=== PATIENT | male | born 1960 | race Caucasian/White ===

== ENCOUNTER 2016-10-18 01:04 | Emergency (ER) | payer OTHER, MEDICARE ==
[~2016-10-18] VITALS: Ht 180.3 cm; Wt 54.4 kg
[~2016-10-18 01:04] MED LIST: BACLOFEN20 M1 PO; BACTRIM DS TAB1 EACH PO; DIAZEPAM10 M1 PO; PYRIDIUM200 M1 PO
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
[2016-10-18] MEDS ORDERED: PYRIDIUM200 M1 PO (02:34)
[2016-10-18] MEDS ORDERED: MACROBID 100 M100 MG PO (02:34)
[2016-10-18 03:05] VITALS: BP 90/56
== END 2016-10-18 03:07 ==
LOC: ERH 01:04
DX: N39.0 Urinary tract infection, site not specified (principal)
CPT/HCPCS: 81001; 87086; 87147

== ENCOUNTER 2016-12-01 01:29 | Emergency (ER) | payer OTHER, MEDICARE ==
[~2016-12-01] VITALS: Ht 182.9 cm; Wt 59.0 kg
[~2016-12-01 01:29] MED LIST changes: +MACROBID 100 M100 MG PO
--- NOTE | 2016-12-01 01:30 | ED GI/GU/ABDOMINAL COMPLAINT ---
History of Present Illness General Chief Complaint: Male Genitourinary Problems Stated Complaint: BIBA BLADDER INFECTION Source: patient, EMS Exam Limitations: no limitations Vital Signs & Intake/Output Vital Signs & Intake/Output Vital Signs Date Time Temp Pulse Resp B/P Pulse O2 O2 Flow FiO2 Ox Delivery Rate 12/01 0137 97 Room Air 12/01 133 96.1 62 18 183/110 97 Room Air Allergies Coded Allergies: NO KNOWN ALLERGIES (09/04/16) Reconcile Medications Baclofen 20 MG TABLET 1 TAB PO 4XDAILY MUSCLE SPASMS (Reported) Ciprofloxacin HCl (Cipro) 500 MG TABLET 1 TAB PO BID uti Diazepam 10 MG TABLET 1 TAB PO TID MUSCLE RELAXER/ANXIETY (Reported) Triage Nurses Notes Reviewed? yes Onset: Gradual Duration: day(s): Timing: recent history Quality/Severity: burning, cramping Location: suprapubic Radiation: no radiation Modifying Factors: Worsens With: palpation, urinating. 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 He notes suprapubic burning and cramping for the past day. He notes that he needs to straight cath himself, "I think that's how I get the infections." He is otherwise well. Past History Travel History Traveled to [place] past 21 day No Medical History Any Pertinent Medical History? see below for history Neurological: paraplegic EENT: NONE Cardiovascular: NONE Respiratory: NONE Gastrointestinal: constipation Hepatic: NONE Renal: NONE Musculoskeletal: NONE Psychiatric: NONE Endocrine: NONE Blood Disorders: NONE History of CDIFF: No Surgical History Surgical History: non-contributory Psychosocial History Who do you live with Patient/Self What is your primary language [place] Family History Hx Contributory? No Review of Systems Review of Systems Constitutional: Reports: no symptoms. EENTM: Reports: no symptoms. Respiratory: Reports: no symptoms. Cardiovascular: Reports: no symptoms. GI: Reports: no symptoms. Genitourinary: Reports: no symptoms. Musculoskeletal: Reports: no symptoms. Skin: Reports: no symptoms. Neurological/Psychological: Reports: no symptoms. Hematologic/Endocrine: Reports: no symptoms. Immunologic/Allergic: Reports: no symptoms. All Other Systems: Reviewed and Negative Physical Exam Physical Exam General Appearance: well developed/nourished, mild distress Head: atraumatic, normal appearance Eyes: Bilateral: normal appearance. Ears, Nose, Throat, Mouth: hearing grossly normal Neck: normal inspection, supple Respiratory: normal breath sounds, chest non-tender, no respiratory distress, quiet respiration, lungs clear Cardiovascular: regular rate/rhythm Gastrointestinal: normal bowel sounds, soft, mild suprapubic tenderness to palpation. no rebound. no guarding. Male Genitals: no significant scrotal edema. Back: normal inspection Extremities: lower extremity contractures. upper extremity wasting. Neurologic/Psych: awake, alert, oriented x 3, lower extremity paralysis, upper extremity pareisis bilaterally Skin: intact, normal color, warm/dry Core Measures ACS in differential dx? No Severe Sepsis Present: No Septic Shock Present: No Progress Differential Diagnosis: uti vs retension vs other. Plan of Care: Orders Procedure Date/time Status Straight Cath 12/01 132 Active CULTURE,URINE 12/01 132 Active URINALYSIS 12/01 132 Complete Laboratory Tests 12/01/163: Urinalysis HEAVY H, Urine Color YEL, Urine Clarity CLDY H, Urine pH 6.5, Ur Specific [place] 1.010, Urine Protein NEG, Urine Ketones NEG, Urine Nitrite NEG, Urine Bilirubin NEG, Urine Urobilinogen 0.2, Ur Leukocyte Esterase LARGE H, Ur Microscopic SEDIMENT EXAMINED, Urine RBC 10-15 H, Urine WBC 25-50 H, Ur Epithelial Cells RARE, Urine Bacteria MANY H, Urine Mucus FEW, Urine Hemoglobin SMALL H, Urine Glucose NEG Microbiology 12/01 222 URINE ROUT: Urine Culture - RECD Initial ED EKG: none Departure Departure Disposition: HOME OR SELF CARE Condition: Stable Clinical Impression Primary Impression: UTI (urinary tract infection) Referrals: IDALMIS ABBOTT,PATRICK Whalen (PCP/Family) Departure Forms: Customer Survey General Discharge Information Prescriptions: Current Visit Scripts Ciprofloxacin HCl (Cipro) 1 TAB PO BID #28 TAB
[2016-12-01] MEDS ORDERED: CIPRO500 M1 PO (02:56)
[2016-12-01 03:59] VITALS: BP 104/62
== END 2016-12-01 04:14 ==
LOC: ERH 01:29
DX: N39.0 Urinary tract infection, site not specified (principal)
CPT/HCPCS: 81001; 87086

== ENCOUNTER 2017-02-08 05:27 | Emergency (ER) | payer OTHER, MEDICARE ==
[~2017-02-08] VITALS: Ht 182.9 cm; Wt 61.2 kg
[~2017-02-08 05:27] MED LIST changes: +CIPRO500 M1 PO
--- NOTE | 2017-02-08 05:36 | ED GI/GU/ABDOMINAL COMPLAINT ---
History of Present Illness General Chief Complaint: General Adult Stated Complaint: "PER EMS BOWEL BLOCKAGE" Source: patient Exam Limitations: no limitations Vital Signs & Intake/Output Vital Signs & Intake/Output Vital Signs Date Time Temp Pulse Resp B/P B/P Pulse O2 O2 Flow FiO2 Mean Ox Delivery Rate 02/08 0545 97 Room Air 02/08 0537 96.6 71 18 106/72 97 Room Air Allergies Coded Allergies: NO KNOWN ALLERGIES (09/04/16) Reconcile Medications Baclofen 20 MG TABLET 1 TAB PO 4XDAILY MUSCLE SPASMS (Reported) Ciprofloxacin HCl (Cipro) 500 MG TABLET 1 TAB PO BID uti, proctitis Diazepam 10 MG TABLET 1 TAB PO TID MUSCLE RELAXER/ANXIETY (Reported) Polyethylene Glycol 3350 (Miralax) 17 GRAM/DOSE POWDER 17 GM PO DAILY constipation mix with water, juice, soda, coffee or tea Triage Note: TRIAGE: PATIENT TO ER FROM HOME REPORTING LAST BM APPROX 1 WEEK AGO, BASELINE 2 BM PER WEEK. PATIENT HX PARAPALEGIA W/ PARALYSIS TO HANDS. PATIENT REPORTS ALSO THINKS POSSIBLE BLADDER INFECTION, STRAIGHT CATHS SELF AT BASELINE AND NOTED "URINE WAS CLOUDY AND HAZY LOOKING." REPORTS "STRAIGHT CATH SELF WHEN I CAN'T GO." PATIENT MANUALLY DISIMPACTED BY MD LAMB IN TRIAGE. LARGE AMOUNT FORMED STOOL OUTPUT, REPORTS +PAIN RELIEF TO LOWER ABDOMEN. GUIAC NEGATIVE. Triage Nurses Notes Reviewed? yes Onset: Gradual Duration: day(s):, waxing and waning Timing: recent history Quality/Severity: cramping Location: left lower quadrant, suprapubic Radiation: no radiation Activities at Onset: none Prior Abdominal Problems: similar symptoms Modifying Factors: Worsens With: defecating, urinating. Associated Symptoms: abdominal pain HPI: 56 yo gentleman with lower extremity paralysis, h/o uti, h/o constipation, presents with left lower quadrant abdominal discomfort and fullness as well as a change in his urination. He notes his last bowel movement was 1 week ago. Usually he has 2 bowel movements per week. He notes also that he feels suprapubic pressure in his lower abdomen and a darker change in his urine color. He notes, "I can't feel down there so well, but when it's like that it's because I have a urine infection." He notes no fever, chills, nausea, vomiting, shortness of breath, chest pain. Past History Travel History Traveled to [place] past 21 day No Medical History Any Pertinent Medical History? 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 No Review of Systems Review of Systems Constitutional: Reports: no symptoms. EENTM: Reports: no symptoms. Respiratory: Reports: no symptoms. Cardiovascular: Reports: no symptoms. GI: Reports: no symptoms. Genitourinary: Reports: no symptoms. Musculoskeletal: Reports: no symptoms. Skin: Reports: no symptoms. Neurological/Psychological: Reports: no symptoms. Hematologic/Endocrine: Reports: no symptoms. Immunologic/Allergic: Reports: no symptoms. All Other Systems: Reviewed and Negative Physical Exam Physical Exam General Appearance: well developed/nourished, mild distress Head: atraumatic, normal appearance Eyes: Bilateral: normal appearance. Ears, Nose, Throat, Mouth: hearing grossly normal Neck: normal inspection, supple, full range of motion, normal alignment Respiratory: normal breath sounds, chest non-tender, no respiratory distress, quiet respiration Cardiovascular: regular rate/rhythm Gastrointestinal: normal bowel sounds, soft, left lower quadrant fullness, mildly tender to palpation Rectal: large amount of firm brown stool, guiac negative. Back: normal inspection Extremities: normal range of motion Neurologic/Psych: no motor/sensory deficits, awake, alert, oriented x 3 Skin: intact, normal color, warm/dry Core Measures ACS in differential dx? No Severe Sepsis Present: No Septic Shock Present: No Progress Differential Diagnosis: UTI/pyelo, constipation vs other. Plan of Care: Orders Procedure Date/time Status Straight Cath 02/09 536 Active URINALYSIS 02/09 536 Complete LIPASE 02/09 536 Complete COMPREHENSIVE METABOLIC PANEL 02/09 536 Complete CBC WITHOUT DIFFERENTIAL 02/09 536 Complete AMYLASE 02/09 536 Complete Laboratory Tests 02/08/17 0545: Anion Gap 8, Estimated GFR > 60, BUN/Creatinine Ratio 32.0 H, Glucose 75, Calcium 8.8, Total Bilirubin 0.4, AST 23, ALT 33, Alkaline Phosphatase 54, Total Protein 6.7, Albumin 4.0, Globulin 2.7, Albumin/Globulin Ratio 1.5, Amylase 73, Lipase 27, CBC w Diff NO MAN DIFF REQ, RBC 3.94 L, MCV 93.7, MCH 31.4 H, RDW 14.4, MPV 8.1, Gran % 50.1, Lymphocytes % 39.6, Monocytes % 6.7, Eosinophils % 3.2, Basophils % 0.4, Absolute Granulocytes 5.0, Absolute Lymphocytes 4.0 H, Absolute Monocytes 0.7 H, Absolute Eosinophils 0.3, Absolute Basophils 0, PUBS MCHC 33.5 02/08/17 0542: Urinalysis MOD H, Urine Color STRAW, Urine Clarity HAZY H, Urine pH 6.5, Ur Specific [place] 1.010, Urine Protein NEG, Urine Ketones NEG, Urine Nitrite POS H, Urine Bilirubin NEG, Urine Urobilinogen 0.2, Ur Leukocyte Esterase LARGE H, Ur Microscopic SEDIMENT EXAMINED, Urine RBC 1-3, Urine WBC 50-75 H, Ur Epithelial Cells FEW, Urine Bacteria MOD H, Urine Hemoglobin SMALL H, Urine Glucose NEG Diagnostic Imaging: Viewed by Me: CT Scan. Discussed w/RAD: CT Scan. Radiology Impression: abd/pelvic ct... proctitis... full report below. Initial ED EKG: none Comments: PATIENT: IVDA VELA PRESENT AGE: 56 PATIENT ACCOUNT NO: [id number] : 61 LOCATION: [facility] ORDERING PHYSICIAN: GLENN LAMB MD SERVICE DATE: 02/08/17 EXAM TYPE: CAT - CT ABD & PELVIS W/O IV CONTRAS EXAMINATION: CT ABDOMEN AND PELVIS WITHOUT CONTRAST CLINICAL INFORMATION: Left lower abdominal pain COMPARISON: None TECHNIQUE: Multidetector volumetric imaging was performed from the superior aspect of the liver through the pubic symphysis. Sagittal and coronal reformatted images were obtained on the technologist's workstation. DLP: 264 mGy-cm FINDINGS: LUNG BASES: The visualized lung bases are unremarkable. LIVER, GALLBLADDER, AND BILIARY TREE: The liver is normal in size, shape, and attenuation. No focal hepatic lesion or biliary ductal dilatation is present. The gallbladder is unremarkable with no evidence of radiopaque gallstones, gallbladder wall thickening, or obvious pericholecystic inflammatory changes. PANCREAS: Unremarkable. SPLEEN: Unremarkable. ADRENAL GLANDS: Unremarkable. KIDNEYS AND URETERS: The kidneys are normal in size, shape, and attenuation. No hydronephrosis, hydroureter, or calculi seen. No perinephric stranding. BLADDER: The bladder is normally distended with mild circumferential wall thickening. No adjacent inflammation. GASTROINTESTINAL TRACT: The stomach and small bowel are unremarkable. No dilated loops of bowel or obstruction. Mild colonic stool burden. There is wall thickening of the rectum with adjacent inflammation. ABDOMINAL WALL: No significant hernia is appreciated. LYMPH NODES: Normal. VASCULAR: Moderate atherosclerotic calcifications. PELVIC VISCERA: The prostate and seminal vesicles are unremarkable. OSSEOUS STRUCTURES: No acute or suspicious osseous abnormality. Mild degenerative changes of the hips and spine. IMPRESSION: Rectal wall thickening and adjacent inflammation suggestive of proctitis. While there is stool in the rectum, it is not significantly distended to suggest stercoral colitis. DICTATED BY: DWAINE HERNANDEZ MD DATE/TIME DICTATED:02/08/17610 COMPUTER ART INSTRUCTOR:YOMI DATE/TIME TRANSCRIBED:02/08/17610 CONFIDENTIAL, DO NOT COPY WITHOUT APPROPRIATE AUTHORIZATION. <Electronically signed in Other Vendor System> SIGNED BY: DWAINE HERNANDEZ MD 02/08 Departure Departure Disposition: HOME OR SELF CARE Condition: Stable Clinical Impression Primary Impression: Constipation Referrals: IDALMIS ABBOTT,PATRICK Whalen (PCP/Family) Departure Forms: Customer Survey General Discharge Information Prescriptions: Current Visit Scripts Polyethylene Glycol 3350 (Miralax) 17 GM PO DAILY #255 GM Ref 1 mix with water, juice, soda, coffee or tea Ciprofloxacin HCl (Cipro) 1 TAB PO BID #28 TAB Comments 02/08/17, 5:36... disimpacted a large amount of hard brown stool. pt felt relief. guiac negative. 02/08/17, 6:48.... discussed at length... pt feeling better... pt home with cipro , has support at home... advised close follow up.
[2017-02-08 05:37] VITALS: BP 106/72
[2017-02-08 06:03] LABS: ABSOLUTE BASOPHIL COUNT 0 /CUMM (0.0-0.2); ABSOLUTE EOSINOPHIL COUNT 0.3 /CUMM (0.0-0.7); ABSOLUTE MONOCYTE COUNT 0.7 /CUMM (0.10-0.60); BASOPHIL % 0.4 % (0.0-2.0); EOSINOPHIL % 3.2 % (0-5); GRANULOCYTE % 50.1 % (42.2-75.2); HEMATOCRIT 36.9 % (42-52); MEAN CORPUSCULAR HGB 31.4 PG (27.0-31.0); MEAN CORPUSCULAR HGB CONC 33.5 G/DL (33.0-37.0); MEAN CORPUSCULAR VOLUME 93.7 FL (80.0-94.0); MEAN PLATELET VOLUME 8.1 FL (7.4-10.4); PLATELET COUNT 232 /CUMM (130-400); RBC DISTRIBUTION WIDTH 14.4 % (11.5-14.5); RED BLOOD CELL CT 3.94 /CUMM (4.70-6.10)
--- NOTE | 2017-02-08 06:17 | CT SCAN REPORT ---
EXAMINATION: CT ABDOMEN AND PELVIS WITHOUT CONTRAST CLINICAL INFORMATION: Left lower abdominal pain COMPARISON: None TECHNIQUE: Multidetector volumetric imaging was performed from the superior aspect of the liver through the pubic symphysis. Sagittal and coronal reformatted images were obtained on the technologist's workstation. DLP: 264 mGy-cm FINDINGS: LUNG BASES: The visualized lung bases are unremarkable. LIVER, GALLBLADDER, AND BILIARY TREE: The liver is normal in size, shape, and attenuation. No focal hepatic lesion or biliary ductal dilatation is present. The gallbladder is unremarkable with no evidence of radiopaque gallstones, gallbladder wall thickening, or obvious pericholecystic inflammatory changes. PANCREAS: Unremarkable. SPLEEN: Unremarkable. ADRENAL GLANDS: Unremarkable. KIDNEYS AND URETERS: The kidneys are normal in size, shape, and attenuation. No hydronephrosis, hydroureter, or calculi seen. No perinephric stranding. BLADDER: The bladder is normally distended with mild circumferential wall thickening. No adjacent inflammation. GASTROINTESTINAL TRACT: The stomach and small bowel are unremarkable. No dilated loops of bowel or obstruction. Mild colonic stool burden. There is wall thickening of the rectum with adjacent inflammation. ABDOMINAL WALL: No significant hernia is appreciated. LYMPH NODES: Normal. VASCULAR: Moderate atherosclerotic calcifications. PELVIC VISCERA: The prostate and seminal vesicles are unremarkable. OSSEOUS STRUCTURES: No acute or suspicious osseous abnormality. Mild degenerative changes of the hips and spine. IMPRESSION: Rectal wall thickening and adjacent inflammation suggestive of proctitis. While there is stool in the rectum, it is not significantly distended to suggest stercoral colitis.
[2017-02-08] MEDS ORDERED: CIPRO500 M1 PO ×2 (06:38→06:41)
[2017-02-08] MEDS ORDERED: MIRALAX119 GM PO (06:38)
== END 2017-02-08 07:53 ==
LOC: ERH 05:27
PROVIDERS: Pediatrics
DX: K59.00 Constipation, unspecified (principal)
CPT/HCPCS: 74176; 81001

== ENCOUNTER 2017-03-16 21:44 | Emergency (ER) | payer OTHER, MEDICARE ==
[~2017-03-16] VITALS: Ht 167.6 cm; Wt 43.1 kg
[~2017-03-16 21:44] MED LIST changes: +MIRALAX119 GM PO
--- NOTE | 2017-03-16 22:07 | ED GI/GU/ABDOMINAL COMPLAINT ---
History of Present Illness General Chief Complaint: Male Genitourinary Problems Stated Complaint: BIBA FOR BLADDER INFECTION Source: patient Exam Limitations: no limitations Vital Signs & Intake/Output Vital Signs & Intake/Output Vital Signs Date Time Temp Pulse Resp B/P B/P Pulse O2 O2 Flow FiO2 Mean Ox Delivery Rate 03/166 97.1 78 20 86/54 97 Room Air ED Intake and Output 03/17 0000 03/16 1200 Intake Total 240 Output Total Balance 240 Intake, Oral 240 Patient 94 lb 15.99 oz Weight Weight Estimated Measurement Method Allergies Coded Allergies: NO KNOWN ALLERGIES (09/04/16) Reconcile Medications Baclofen 20 MG TABLET 1 TAB PO 4XDAILY MUSCLE SPASMS (Reported) Ciprofloxacin HCl (Cipro) 500 MG TABLET 1 TAB PO BID uti, proctitis Diazepam 10 MG TABLET 1 TAB PO TID MUSCLE RELAXER/ANXIETY (Reported) Levofloxacin (Levaquin) 750 MG TABLET 1 TAB PO DAILY UTI Polyethylene Glycol 3350 (Miralax) 17 GRAM/DOSE POWDER 17 GM PO DAILY constipation mix with water, juice, soda, coffee or tea Triage Note: BIBA FROM HOME WITH C/O BLADDER PAIN AND INCREASED EDEMA TO SCROTUM. Triage Nurses Notes Reviewed? yes Onset: Gradual Duration: day(s): Timing: recent history Quality/Severity: moderate Location: suprapubic, scrotal Prior Abdominal Problems: similar symptoms HPI: 56-year-old male presents to emergency department complaining of bladder infection. Patient states that he noticed dysuria, frequency, suprapubic pain, testicular swelling and soreness 3 days. He has a history of frequent UTIs and states that this feels similar. Prior to this episode he has intermittent similar UTI symptoms usually not lasting this long in duration, he states the symptoms are chronic for him. He states his testicular pain feel similar to his previous UTIs. He denies fevers, chills, nausea, vomiting, discharge, diarrhea. He states he has not seen a specialist for his frequent UTIs. (LASHELL RASMUSSEN PA-C) Past History Travel History Traveled to [place] past 21 day No Medical History Any Pertinent Medical History? 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 No (LASHELL RASMUSSEN PA-C) Review of Systems Review of Systems Constitutional: Reports: no symptoms. EENTM: Reports: no symptoms. Respiratory: Reports: no symptoms. Cardiovascular: Reports: no symptoms. GI: Reports: see HPI. Genitourinary: Reports: see HPI. Musculoskeletal: Reports: no symptoms. Skin: Reports: no symptoms. Neurological/Psychological: Reports: no symptoms. Hematologic/Endocrine: Reports: no symptoms. Immunologic/Allergic: Reports: no symptoms. All Other Systems: Reviewed and Negative (LASHELL RASMUSSEN PA-C) Physical Exam Physical Exam General Appearance: well developed/nourished, no apparent distress, alert, awake Head: atraumatic, normal appearance Eyes: Bilateral: other (abnormal allignment). Ears, Nose, Throat, Mouth: hearing grossly normal Neck: normal inspection, supple, full range of motion Respiratory: normal breath sounds, no respiratory distress Cardiovascular: regular rate/rhythm Gastrointestinal: LLQ and suprapubic tenderness, no rebound or gaurding Male Genitals: no gross testicular swelling on exam, mild tenderness to palpation, no discoloration Back: normal inspection Extremities: limited range of motion, unable to bear weight Neurologic/Psych: motor/sensory deficits (bilateral lower leg paralysis), sensation deficit below waist, bilateral hand paralysis Skin: old wound on posterior left elbow Core Measures ACS in differential dx? No Severe Sepsis Present: No Septic Shock Present: No (LASHELL RASMUSSEN PA-C) Progress Differential Diagnosis: bowel obstruction, diverticulitis, hernia, orchitis, prostatitis, testicular torsion, urethritis, UTI/pyelo Plan of Care: Orders Procedure Date/time Status Straight Cath 03/16 2157 Active URINALYSIS 03/16 2157 Complete COMPREHENSIVE METABOLIC PANEL 03/16 2157 Complete CBC WITHOUT DIFFERENTIAL 03/16 2157 Complete Laboratory Tests 03/16/17 2210: Anion Gap 8, Estimated GFR > 60, BUN/Creatinine Ratio 16.7, Glucose 92, Calcium 9.0, Total Bilirubin 0.6, AST 19, ALT 29, Alkaline Phosphatase 63, Total Protein 6.1 L, Albumin 3.8, Globulin 2.3, Albumin/Globulin Ratio 1.7, CBC w Diff NO MAN DIFF REQ, RBC 3.87 L, MCV 95.1 H, MCH 32.4 H, RDW 14.7 H, MPV 7.1 L, Gran % 70.2, Lymphocytes % 21.9, Monocytes % 6.8, Eosinophils % 1.0, Basophils % 0.1, Absolute Granulocytes 8.2 H, Absolute Lymphocytes 2.6, Absolute Monocytes 0.8 H, Absolute Eosinophils 0.1, Absolute Basophils 0, PUBS MCHC 34.1, Urine Color YEL, Urine Clarity HAZY H, Urine pH 6.5, Ur Specific [place] 1.015, Urine Protein NEG, Urine Ketones NEG, Urine Nitrite NEG, Urine Bilirubin NEG, Urine Urobilinogen 0.2, Ur Leukocyte Esterase NEG, Ur Microscopic SEDIMENT EXAMINED, Urine RBC RARE, Urine WBC RARE, Urine Hemoglobin TRACE-INTACT H, Urine Glucose NEG Urinalysis appears negative for UTI however CT scan shows thickening of the bladder, cannot rule out cystitis. CT also shows proctitis as seen on last CT scan. Will treat his antibiotics to cover cystitis and proctitis. The patient will follow up with his primary care doctor as needed. The patient was discussed with Dr. Wahl. Patient will return with any worsening symptoms or concerns. The patient is nontoxic appearing, his vital signs are stable, he is afebrile. The patient is in agreement with the plan of care. (GRADY TAYLOR,LASHELL) Diagnostic Imaging: Viewed by Me: CT Scan. Discussed w/RAD: CT Scan. Radiology Impression: PATIENT: VIDA VELA PRESENT AGE: 56 PATIENT ACCOUNT NO: [id number] : 61 LOCATION: [facility] ORDERING PHYSICIAN: LASHELL RASMUSSEN PA-C SERVICE DATE: 03/16/17 EXAM TYPE: CAT - CT ABD & PELVIS W IV CONTRAST EXAMINATION: CT ABDOMEN AND PELVIS WITH CONTRAST CLINICAL INFORMATION: Proctitis, diverticulitis COMPARISON: 01/30/2017 TECHNIQUE : Multidetector volumetric imaging was performed of the abdomen and pelvis before and after the IV administration of 80 mL of Omnipaque 300 intravenous contrast. Sagittal and coronal reformatted images were obtained on the technologist's workstation. Lung bases are grossly clear. Upper abdomen Liver and spleen are within normal limits. Region the pancreas is unremarkable. Mild prominence of the common duct. . The adrenal glands is within normal limits. The kidneys are in the early nephrographic phase There is no bulky adenopathy seen here. No free fluid. Nonobstructive bowel pattern. Calcified aorta but not aneurysmal. In the pelvis once again some thickening of the distal rectosigmoid suggestive of proctitis no convincing evidence for diverticulitis. No suspicious fluid collection. Possible bladder wall thickening as well. IMPRESSION: Once again some thickening of the rectosigmoid consistent with proctitis/colitis. No free fluid. Probable bladder wall thickening. Cystitis cannot be excluded. DICTATED BY: FAWN SANDERS MD DATE/TIME DICTATED:03/16/172325 STRIPPER PRELIMINARY:YOMI DATE/TIME TRANSCRIBED:03/16/172325 CONFIDENTIAL, DO NOT COPY WITHOUT APPROPRIATE AUTHORIZATION. <Electronically signed in Other Vendor System> SIGNED BY: FAWN SANDERS MD 03/16/17 3867 Initial ED EKG: none (LASHELL RASMUSSEN PA-C) Departure Departure Disposition: HOME OR SELF CARE Condition: Stable Clinical Impression Primary Impression: Cystitis Secondary Impressions: Proctitis Referrals: IDALMIS ABBOTT,PATRICK Whalen (PCP/Family) Additional Instructions: Take full course of antibiotics. Call your primary cardiac doctor to inform them that you were seen and evaluated here today. Return with worsening symptoms or concerns, increasing fevers, blood in urine, abdominal pain, worsening painful urination. Departure Forms: Customer Survey General Discharge Information Prescriptions: Current Visit Scripts Levofloxacin (Levaquin) 1 TAB PO DAILY #5 TAB (LASHELL RASMUSSEN PA-C) PA/EXPENSE CLERK Co-Sign Statement Statement: ED Attending supervision documentation- [] I saw and evaluated the patient. I have also reviewed all the pertinent lab results and diagnostic results. I agree with the findings and the plan of care as documented in the PA's/EXPENSE CLERK's documentation. [X] I have reviewed the ED Record and agree with the PA's/EXPENSE CLERK's documentation. [] Additions or exceptions (if any) to the PAs/EXPENSE CLERK's note and plan are summarized below: [] (ELVER ABBOTT,BHARATI)
[2017-03-16 22:22] LABS: ABSOLUTE BASOPHIL COUNT 0 /CUMM (0.0-0.2); ABSOLUTE EOSINOPHIL COUNT 0.1 /CUMM (0.0-0.7); ABSOLUTE GRANULOCYTE CT 8.2 /CUMM (1.4-6.5); ABSOLUTE LYMPH COUNT 2.6 /CUMM (1.2-3.4); ABSOLUTE MONOCYTE COUNT 0.8 /CUMM (0.10-0.60); BASOPHIL % 0.1 % (0.0-2.0); GRANULOCYTE % 70.2 % (42.2-75.2); HEMATOCRIT 36.8 % (42-52); MEAN CORPUSCULAR HGB 32.4 PG (27.0-31.0); MEAN CORPUSCULAR HGB CONC 34.1 G/DL (33.0-37.0); MEAN CORPUSCULAR VOLUME 95.1 FL (80.0-94.0); MEAN PLATELET VOLUME 7.1 FL (7.4-10.4); PLATELET COUNT 269 /CUMM (130-400); RBC DISTRIBUTION WIDTH 14.7 % (11.5-14.5); RED BLOOD CELL CT 3.87 /CUMM (4.70-6.10); WHITE BLOOD CELL COUNT 11.7 /CUMM (4.8-10.8)
[2017-03-16 22:26] VITALS: BP 86/54
--- NOTE | 2017-03-16 23:33 | CT SCAN REPORT ---
EXAMINATION: CT ABDOMEN AND PELVIS WITH CONTRAST CLINICAL INFORMATION: Proctitis, diverticulitis COMPARISON: 01/30/2017 TECHNIQUE: Multidetector volumetric imaging was performed of the abdomen and pelvis before and after the IV administration of 80 mL of Omnipaque 300 intravenous contrast. Sagittal and coronal reformatted images were obtained on the technologist's workstation. Lung bases are grossly clear. Upper abdomen Liver and spleen are within normal limits. Region the pancreas is unremarkable. Mild prominence of the common duct. . The adrenal glands is within normal limits. The kidneys are in the early nephrographic phase There is no bulky adenopathy seen here. No free fluid. Nonobstructive bowel pattern. Calcified aorta but not aneurysmal. In the pelvis once again some thickening of the distal rectosigmoid suggestive of proctitis no convincing evidence for diverticulitis. No suspicious fluid collection. Possible bladder wall thickening as well. IMPRESSION: Once again some thickening of the rectosigmoid consistent with proctitis/colitis. No free fluid. Probable bladder wall thickening. Cystitis cannot be excluded.
[2017-03-17] MEDS ORDERED: LEVAQUIN750 M1 PO (00:23)
== END 2017-03-17 02:55 ==
LOC: ERH 21:44
PROVIDERS: Physician Assistant
DX: N30.90 Cystitis, unspecified without hematuria (principal); K62.89 Other specified diseases of anus and rectum
CPT/HCPCS: 74177; 81001

== ENCOUNTER 2018-06-02 22:22 | Emergency (ER) | payer OTHER, MEDICARE ==
[~2018-06-02 22:22] MED LIST changes: +CYCLOBENZAPRINE10 M1 PO; +LEVAQUIN750 M1 PO; +LEVSIN0.125 M1 PO; +MACRODANTIN100 M1 PO
[2018-06-02 22:32] VITALS: BP 105/66
--- NOTE | 2018-06-02 22:34 | ED GI/GU/ABDOMINAL COMPLAINT ---
History of Present Illness General Chief Complaint: Male Genitourinary Problems Stated Complaint: BIBA FOR "PAINFUL URINATION" PER EMS Source: patient, old records, EMS Exam Limitations: no limitations Vital Signs & Intake/Output Vital Signs & Intake/Output Vital Signs Date Time Temp Pulse Resp B/P B/P Pulse O2 O2 Flow FiO2 Mean Ox Delivery Rate 06/02 2233 96 Room Air 06/02 2232 98.3 58 18 105/66 96 Room Air ED Intake and Output 06/03 0000 06/02 1200 Intake Total Output Total 275 Balance -275 Output, Urine 275 Allergies Coded Allergies: NO KNOWN ALLERGIES (09/04/16) Reconcile Medications Baclofen 20 MG TABLET 1 TAB PO 4XDAILY MUSCLE SPASMS (Reported) Cephalexin (Keflex) 500 MG CAPSULE 1 CAP PO TID UTI Cyclobenzaprine HCl 10 MG TABLET 1 TAB PO TID PRN muscle spasm Diazepam 10 MG TABLET 1 TAB PO TID MUSCLE RELAXER/ANXIETY (Reported) Hyoscyamine (Levsin) 0.125 MG TABLET 1-2 TAB PO Q6P PRN Bladder spasm Nitrofurantoin Macrocrystal (Macrodantin) 100 MG CAPSULE 1 CAP PO BID uti Phenazopyridine HCl (Pyridium) 200 MG TABLET 1 TAB PO TID dysuria Triage Note: PT BIBA FROM HOME WITH C/O 3 DAYS OF DYSURIA, WHICH PT ASSOCIATES WITH CHRONIC UTIs. PT HX OF QUADRIPLEGIA R/T ACCIDENT. DOES HAVE SOME MOVEMENT TO BUE WITH NOTED CONTRACTIONS, SENSATION WITHOUT MOVEMENT TO BLE. PT ARRIVES A&O, ABLE TO DESCRIBE SX AND HX WELL, VSS, WITH BP LOW-NORMAL, WITHIN PT'S STATED RANGE Triage Nurses Notes Reviewed? yes Onset: 3 days Duration: day(s):, continues in ED, intermittent Timing: recent history Quality/Severity: burning, moderate Location: urethral Radiation: no radiation Activities at Onset: rest Prior Abdominal Problems: similar symptoms Past Sexual History: Unobtainable at this time Modifying Factors: Worsens With: urinating. Associated Symptoms: dysuria HPI: 3 days prior to admission patient complains of painful urination with frequency, He denies fever chills nausea vomiting diarrhea abdominal pain chest pain shortness breath headache rash bleeding. Past History Travel History Traveled to [place] past 21 day No Medical History Any Pertinent Medical History? 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 No Review of Systems Review of Systems Constitutional: Reports: no symptoms. EENTM: Reports: no symptoms. Respiratory: Reports: no symptoms. Cardiovascular: Reports: no symptoms. GI: Reports: no symptoms. Genitourinary: Reports: see HPI, dysuria, frequency. Musculoskeletal: Reports: no symptoms. Skin: Reports: no symptoms. Neurological/Psychological: Reports: no symptoms. Hematologic/Endocrine: Reports: no symptoms. Immunologic/Allergic: Reports: no symptoms. All Other Systems: Reviewed and Negative Physical Exam Physical Exam General Appearance: well developed/nourished, alert, awake, comfortable, thin Head: atraumatic, normal appearance Eyes: Bilateral: normal appearance, PERRL, EOMI, normal inspection. Ears, Nose, Throat, Mouth: hearing grossly normal, moist mucous membrane Neck: normal inspection, supple, full range of motion, normal alignment Respiratory: normal breath sounds, chest non-tender, no respiratory distress, quiet respiration, lungs clear Cardiovascular: regular rate/rhythm, normal peripheral pulses, norml femoral pulses equa Peripheral Pulses: 4+ carotid (R), 4+ carotid (L) Gastrointestinal: normal bowel sounds, soft, non-tender, no organomegaly Male Genitals: normal genitalia Back: normal inspection, normal range of motion, no vertebral tenderness Extremities: normal range of motion Neurologic/Psych: awake, 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 No Sepsis Present: No Sepsis Focused Exam Completed? No Progress Differential Diagnosis: urethritis, UTI/pyelo Plan of Care: Orders Procedure Date/time Status CULTURE,URINE 06/02 2227 Active URINALYSIS 06/02 2227 Complete Laboratory Tests 06/02/182248: Urine Color YEL, Urine Clarity HAZY H, Urine pH 7.0, Ur Specific [place] 1.010, Urine Protein NEG, Urine Ketones NEG, Urine Nitrite NEG, Urine Bilirubin NEG, Urine Urobilinogen 0.2, Ur Leukocyte Esterase LARGE H, Ur Microscopic SEDIMENT EXAMINED, Urine RBC FEW H, Urine WBC 1-3 H, Ur Epithelial Cells RARE, Urine Bacteria MOD H, Urine Hemoglobin TRACE-INTACT H, Urine Glucose NEG Microbiology 06/02 224 URINE ROUT: Urine Culture - RECD Initial ED EKG: none Departure Departure Time of Disposition: 2336 Disposition: HOME OR SELF CARE Condition: Stable Clinical Impression Primary Impression: UTI (urinary tract infection) Referrals: Calvin ABBOTT,Sumit Whalen (PCP/Family) Departure Forms: Customer Survey General Discharge Information Prescriptions: Current Visit Scripts Cephalexin (Keflex) 1 CAP PO TID #21 CAP Phenazopyridine HCl (Pyridium) 1 TAB PO TID #9 TAB
[2018-06-02] MEDS ORDERED: KEFLEX500 M1 PO (23:38)
[2018-06-02] MEDS ORDERED: PYRIDIUM200 M1 PO (23:38)
== END 2018-06-03 00:13 ==
LOC: ERH 22:22
DX: N39.0 Urinary tract infection, site not specified (principal); G82.20 Paraplegia, unspecified; F17.210 Nicotine dependence, cigarettes, uncomplicated
CPT/HCPCS: 81001; 87086; 96374; J0696